=== PATIENT | male | born 1985 | race Caucasian/White ===

== ENCOUNTER 2021-08-09 17:27 | Emergency (ER) | payer OTHER ==
[2021-08-09] MEDS ORDERED: TETANUS/DIPHTHERIA/PERTUSSIS 0.5 ML SYRINGE IM ONE (17:42)
--- NOTE | 2021-08-09 18:12 | ED Physician Documentation ---
PD HPI UPPER EXT INJURY - Stated complaint Stated Complaint: R WRIST LAC - Chief complaint Chief Complaint: Laceration - History obtained from History obtained from: Patient - History of Present Illness Location: Right, Wrist Type of injury: Laceration Where injury occurred: Home Timing - onset: How many hours ago (1) Timing - duration: Hours (1) Pain level max: 4 Pain level now: 3 Improved by: Rest Worsened by: Moving Associated symptoms: No: Weakness, Numbness, Tingling, Swelling, Discolored Contributing factors: No: Anticoagulated - Additonal information Additional information: 35-year-old male presents to the emergency department with a laceration to the right wrist. He states this was on a piece of metal at home. Unknown last tetanus. Occurred about 1 hour prior to arrival. Worse with movement, better with pressure. No numbness or tingling. Not anticoagulated. Patient is right- handed. Review of Systems Constitutional: denies: Fever, Chills GI: denies: Vomiting, Diarrhea Skin: denies: Rash Musculoskeletal: denies: Neck pain, Back pain Neurologic: denies: Headache PD PAST MEDICAL HISTORY - Past Medical History Past Medical History: No - Past Surgical History Past Surgical History: No - Present Medications Home Medications: Ambulatory Orders Medication Instructions Recorded Confirmed cephALEXin [Keflex] 500 mg PO Q6H #28 cap 08/09/21 - Allergies Allergies/Adverse Reactions: Allergies Allergy/AdvReac Type Severity Reaction Status Date / Time No Known Drug Allergies Allergy Verified 08/09/21 17:40 - Social History Does the pt smoke?: No Smoking Status: Never smoker Does the pt drink ETOH?: Yes Does the pt have substance abuse?: No - Immunizations Immunizations are current?: No Immunizations: TDAP >10years/unknown - POLST Patient has POLST: No PD ED PE NORMAL - Vitals Vital signs reviewed: Yes - General General: Alert and oriented X 3, No acute distress, Well developed/nourished - HEENT HEENT: PERRL, Moist mucous membranes - Neck Neck: Supple, no meningeal sign - Derm Derm: Warm and dry - Extremities Extremities: Other (Laceration to the right wrist, approximately 3 cm, curved on the ulnar aspect.) - Neuro Neuro: Alert and oriented X 3 - Psych Psych: Normal mood, Normal affect PD ED PE EXPANDED - Extremities JERRY UE/Hands Visual: 1 - laceration (3cm, curved. NVI. into fat. able to move all fingers and wr ist. tested in all directions vs resistance. No deficits.) Results - Vitals Vitals: Vital Signs - 24 hr 08/09/21 08/09/21 17:38 18:24 Temperature 36.0 C L Heart Rate 94 85 Respiratory 16 18 Rate Blood Pressure 153/98 H 128/75 O2 Saturation 97 97 Oxygen O2 Source Room air Procedures - Laceration (location) R wrist Length in cm: 3 Wound type: Linear, Curved, Into subcut fat, Clean Neurovascular status: Sensory intact, Motor intact, Vascular intact Tendon involvement: Tendon intact Wound preparation: Irrigated copiously NS, Wound explored, To the base Skin layer closure: Nylon, Interrupted, Size #-0 - enter number (4), Sutures - enter # (8) Other: Patient tolerated well, No complications, Neurovascular intact, Dressing applied, Tetanus booster given PD MEDICAL DECISION MAKING - ED course Complexity details: reviewed results, re-evaluated patient, considered differential, d/w patient ED course: 35-year-old male with a right wrist laceration. Repaired in the emergency de partment. Dressing applied. No further bleeding. No evidence of tendon injury. No evidence of significant vascular injury. No numbness or tingling.Tdap given. Warnings of infection and instructions on wound care given at bedside. Also counseled on how to minimize scarring. Patient counseled r egarding signs and symptoms for which I believe and urgent re-evaluation would be necessary. Patient with good understanding of and agreement to plan and is comfortable going home at this time This document was made in part using voice recognition software. While efforts are made to proofread this document, sound alike and grammatical errors may occur. Departure - Departure Disposition: 01 Home, Self Care Clinical Impression: Laceration of wrist Qualifiers: Encounter type: initial encounter Laterality: right Qualified Code(s): S61.511A - Laceration without foreign body of right wrist, initial encounter Condition: Good Instructions: ED Laceration Ext Sutr Stap Tape Follow-Up: [facility] [place] [Provider Group] [facility] [place] [Provider Group] [facility] [Provider Group] [facility] [Provider Group] Prescriptions: cephALEXin [Keflex] 500 mg PO Q6H #28 cap Comments: Your sutures will be removed in about 2 weeks with your doctor. Alternatively you may return here for removal of sutures. Keep the wound clean. Return if you worsen sooner including redness, swelling or drainage from the wound. Your prescriptions were sent to [facility] in [place]. Forms: Activity restrictions Discharge Date/Time: 08/09/21 18:26
[2021-08-09 18:26] VITALS: BP 128/75
== END 2021-08-09 18:26 | disposition home or self-care (01) ==
LOC: ED 17:27
DX: S61.511A Laceration without foreign body of right wrist, initial encounter (principal); W26.8XXA Contact with other sharp object(s), not elsewhere classified, initial encounter; Y92.009 Unspecified place in unspecified non-institutional (private) residence as the place of occurrence of the external cause; Z23 Encounter for immunization; Z71.85 Encounter for immunization safety counseling
CPT/HCPCS: 12002; 90471; 99283